=== PATIENT | male | born 1965 | race Caucasian/White ===

== ENCOUNTER → 2023-08-23 14:00 | Outpatient (REF) | payer BC, OTHER, SELFPAY | LOC: HWEVLT 14:00 | PROVIDERS: ATTENDING PHYSICIAN Radiology Vascular & Interventional Radiology | DX: I83.893 Varicose veins of bilateral lower extremities with other complications (principal) | CPT/HCPCS: 93970 ==

== ENCOUNTER → 2025-04-21 12:29 | Outpatient (REF) | payer BC, OTHER, SELFPAY | LOC: WOUND 12:29 | PROVIDERS: ATTENDING PHYSICIAN Surgery; FAMILY PHYSICIAN Physician Assistant | DX: I87.312 Chronic venous hypertension (idiopathic) with ulcer of left lower extremity (principal); L97.322 Non-pressure chronic ulcer of left ankle with fat layer exposed; I73.9 Peripheral vascular disease, unspecified; I87.2 Venous insufficiency (chronic) (peripheral); L40.9 Psoriasis, unspecified | CPT/HCPCS: 99204 ==

== ENCOUNTER → 2025-04-21 13:20 | Outpatient (REF) | payer BC, OTHER, SELFPAY | LOC: REG 13:20 | PROVIDERS: ATTENDING PHYSICIAN Surgery; FAMILY PHYSICIAN Physician Assistant | DX: I87.312 Chronic venous hypertension (idiopathic) with ulcer of left lower extremity (principal); L97.322 Non-pressure chronic ulcer of left ankle with fat layer exposed | CPT/HCPCS: 73610 ==

== ENCOUNTER 2025-04-30 14:42 | Outpatient (REF) | payer BC, OTHER, SELFPAY | END 2025-04-30 23:59 | disposition home or self-care (01) | LOC: WOUND 14:42 | PROVIDERS: ATTENDING PHYSICIAN Surgery; FAMILY PHYSICIAN Physician Assistant | DX: I87.312 Chronic venous hypertension (idiopathic) with ulcer of left lower extremity (principal); L97.322 Non-pressure chronic ulcer of left ankle with fat layer exposed; I73.9 Peripheral vascular disease, unspecified; I87.2 Venous insufficiency (chronic) (peripheral); L40.9 Psoriasis, unspecified | CPT/HCPCS: 99213 ==

== ENCOUNTER → 2025-05-07 14:37 | Outpatient (REF) | payer BC, OTHER, SELFPAY | LOC: WOUND 14:37 | PROVIDERS: ATTENDING PHYSICIAN Surgery; FAMILY PHYSICIAN Physician Assistant | DX: I87.312 Chronic venous hypertension (idiopathic) with ulcer of left lower extremity (principal); L97.322 Non-pressure chronic ulcer of left ankle with fat layer exposed; I73.9 Peripheral vascular disease, unspecified; I87.2 Venous insufficiency (chronic) (peripheral); L40.9 Psoriasis, unspecified | CPT/HCPCS: 99213 ==

== ENCOUNTER → 2025-05-25 13:37 | Outpatient (REF) | payer BC, OTHER, SELFPAY | LOC: WOUND 13:37 | PROVIDERS: ATTENDING PHYSICIAN Surgery; FAMILY PHYSICIAN Physician Assistant | DX: I87.312 Chronic venous hypertension (idiopathic) with ulcer of left lower extremity (principal); L97.322 Non-pressure chronic ulcer of left ankle with fat layer exposed; L03.116 Cellulitis of left lower limb; I73.9 Peripheral vascular disease, unspecified; I87.2 Venous insufficiency (chronic) (peripheral); L40.9 Psoriasis, unspecified | CPT/HCPCS: 99214 ==

== ENCOUNTER → 2025-05-25 14:15 | Outpatient (REF) | payer BC, OTHER, SELFPAY | LOC: CLAB 14:15 | PROVIDERS: ATTENDING PHYSICIAN Surgery | DX: L97.322 Non-pressure chronic ulcer of left ankle with fat layer exposed (principal); L03.116 Cellulitis of left lower limb | CPT/HCPCS: 87070; 87075; 87077; 87205 ==

== ENCOUNTER → 2025-06-01 14:47 | Outpatient (REF) | payer BC, OTHER, SELFPAY | LOC: WOUND 14:47 | PROVIDERS: ATTENDING PHYSICIAN Surgery | DX: I87.312 Chronic venous hypertension (idiopathic) with ulcer of left lower extremity (principal); L97.322 Non-pressure chronic ulcer of left ankle with fat layer exposed; L03.116 Cellulitis of left lower limb; I73.9 Peripheral vascular disease, unspecified; I87.2 Venous insufficiency (chronic) (peripheral); L40.9 Psoriasis, unspecified | CPT/HCPCS: 11042; 11045 ==

== ENCOUNTER 2025-06-11 14:39 | Outpatient (REF) | payer BC, OTHER, SELFPAY | END 2025-06-11 23:59 | disposition home or self-care (01) | LOC: WOUND 14:39 | PROVIDERS: ATTENDING PHYSICIAN Surgery; FAMILY PHYSICIAN Physician Assistant | DX: I87.312 Chronic venous hypertension (idiopathic) with ulcer of left lower extremity (principal); L97.322 Non-pressure chronic ulcer of left ankle with fat layer exposed; L03.116 Cellulitis of left lower limb; I73.9 Peripheral vascular disease, unspecified; I87.2 Venous insufficiency (chronic) (peripheral); L40.9 Psoriasis, unspecified | CPT/HCPCS: 99213 ==

== ENCOUNTER → 2025-06-29 06:44 | Outpatient (REF) | payer BC, OTHER, SELFPAY | LOC: RAD 06:44 | PROVIDERS: ATTENDING PHYSICIAN Surgery; FAMILY PHYSICIAN Family Medicine | DX: I87.312 Chronic venous hypertension (idiopathic) with ulcer of left lower extremity (principal); I73.9 Peripheral vascular disease, unspecified | CPT/HCPCS: 93922 ==

== ENCOUNTER 2025-07-07 14:42 | Outpatient (REF) | payer BC, OTHER, SELFPAY | END 2025-07-07 23:59 | disposition home or self-care (01) | LOC: WOUND 14:42 | PROVIDERS: ATTENDING PHYSICIAN Registered Nurse; FAMILY PHYSICIAN Physician Assistant | DX: I87.312 Chronic venous hypertension (idiopathic) with ulcer of left lower extremity (principal); L97.322 Non-pressure chronic ulcer of left ankle with fat layer exposed; L03.116 Cellulitis of left lower limb; I73.9 Peripheral vascular disease, unspecified; I87.2 Venous insufficiency (chronic) (peripheral); L40.9 Psoriasis, unspecified | CPT/HCPCS: 99213 ==